=== PATIENT | female | born 2005 | race Caucasian/White ===

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

== ENCOUNTER → 2024-09-12 10:39 | Outpatient (BNVA) | payer MEDICAID, SELFPAY | PROVIDERS: Family Provider Nurse Practitioner; PCP Nurse Practitioner; Visit Provider Podiatrist Foot & Ankle Surgery | DX: B35.3 Tinea pedis | CPT/HCPCS: 99203 ==

== ENCOUNTER → 2024-10-17 09:39 | Outpatient (BNVA) | payer MEDICAID, SELFPAY | PROVIDERS: Family Provider Nurse Practitioner; PCP Nurse Practitioner; Visit Provider Podiatrist Foot & Ankle Surgery | DX: B35.3 Tinea pedis | CPT/HCPCS: 99213 ==

== ENCOUNTER → 2024-11-20 10:47 | Outpatient (BNVA) | payer MEDICAID, SELFPAY | PROVIDERS: Family Provider Nurse Practitioner; PCP Nurse Practitioner; Visit Provider Podiatrist Foot & Ankle Surgery | DX: B35.3 Tinea pedis | CPT/HCPCS: 99213 ==

== ENCOUNTER 2025-02-04 09:45 | Outpatient (CLI) | payer MEDICAID, SELFPAY | END 2025-02-04 09:46 | disposition home or self-care (01) | LOC: SLEEP 09:45 | PROVIDERS: Family Provider Nurse Practitioner; PCP Nurse Practitioner; Visit Provider Internal Medicine | DX: G47.10 Hypersomnia, unspecified (principal) | CPT/HCPCS: G0399 ==

== ENCOUNTER → 2025-08-13 07:53 | Outpatient (BNVA) | payer MEDICAID, SELFPAY | PROVIDERS: Family Provider Nurse Practitioner; Visit Provider Nurse Practitioner Family | DX: L21.8 Other seborrheic dermatitis (principal); L29.89 Other pruritus; L44.8 Other specified papulosquamous disorders; Q27.8 Other specified congenital malformations of peripheral vascular system; L81.3 Cafe au lait spots; S50.912A Unspecified superficial injury of left forearm, initial encounter; X58.XXXA Exposure to other specified factors, initial encounter | CPT/HCPCS: 99204 ==

== ENCOUNTER → 2025-09-17 08:25 | Outpatient (BNVA) | payer MEDICAID, SELFPAY | PROVIDERS: Family Provider Nurse Practitioner; Visit Provider Nurse Practitioner Family | DX: L21.8 Other seborrheic dermatitis (principal); L29.89 Other pruritus; L44.8 Other specified papulosquamous disorders | CPT/HCPCS: 99214 ==